=== PATIENT | female | born 1955 | race Caucasian/White ===

== ENCOUNTER 2022-11-23 05:38 | Inpatient (IN) ==
[~2022-11-23 05:38] MED LIST: Naloxone 0.4 mg VIAL 0.4 mg/ml 1 ml VIAL IV PRN; Prochlorperazine 5 mg/ml 2 ml VIAL (10 mg) IV PRN
[2022-11-23] MEDS ORDERED: Lactated Ringers 1000 ml BAG 1,000 ML IV SCH (06:00)
[2022-11-23] MEDS ORDERED: Famotidine IV 10 MG/ML 2 ml VIAL (20 mg) IV ONE (06:00)
[2022-11-23] MEDS ORDERED: Buffered Lidocaine 1% SYRIN 1 ml INTRADERM ONE (06:00)
[2022-11-23] MEDS ORDERED: BUPIVACAINE **LIPOSOME/PF 13.3 MG/ML (266MG/ 20ML) VIAL (RESTRICTED) INFIL ONE (06:00)
[2022-11-23] MEDS ORDERED: ceFAZolin 2 GM in NS PREMIX 2 GM/100 ML BAG IVPB ONE (06:08)
[2022-11-23] MEDS ORDERED: Tranexamic Acid 1 GM/100ML BAG 2,000 MG/200 ML BAG IV ONE (06:08)
[2022-11-23] MEDS ORDERED: Famotidine IV 10 MG/ML 2 ml VIAL (20 mg) ONE (06:09)
[2022-11-23 06:10] LABS: Rapid COVID-19 Molecular Undetected (Undetected)
[2022-11-23] MEDS ORDERED: Phenylephrine IV 10 MG/ML 1 ml VIAL ONE (07:10)
[2022-11-23] MEDS ORDERED: Propofol 0 MG/0 ML BTL ONE (07:10)
[2022-11-23] MEDS ORDERED: Propofol 10 MG/ML 20 ML BTL ONE ×2 (07:10→08:41)
[2022-11-23] MEDS ORDERED: Lidocaine 2% PF 5 ML VIAL ONE (07:10)
[2022-11-23] MEDS ORDERED: fentaNYL 100 mcg/2 ml 50 MCG/ML VIAL ONE ×2 (07:11→10:03)
[2022-11-23] MEDS ORDERED: Midazolam 2 mg/2 ml VIAL 1 mg/ml 2 ml VIAL (2 mg) ONE (07:11)
[2022-11-23] MEDS ORDERED: Bupivacaine 0.25% SDV 30 ML ONE ×2 (07:21→07:59)
[2022-11-23] MEDS ORDERED: Rocuronium 50 mg VIAL 10 mg/ml 5 ml VIAL (50 mg) ONE (08:35)
[2022-11-23] MEDS ORDERED: Succinylcholine 200 mg VIAL 20 mg/ml 10 ml VIAL (200 mg) ONE (08:41)
[2022-11-23] MEDS ORDERED: HYDROmorphone 0.5 MG/0.5 ML SYRINGE ONE ×2 (08:57)
[2022-11-23] MEDS ORDERED: Levalbuterol HFA INHALER MDI ONE (09:07)
[2022-11-23] MEDS ORDERED: Glycopyrrolate IV 0.2 MG/ML 1 ML VIAL ONE (09:14)
[2022-11-23] MEDS ORDERED: Sevoflurane BOTTLE ONE (10:44)
[2022-11-23] MEDS ORDERED: Magnesium Hydroxide LIQ 30 ML UDC PO PRN (11:32)
[2022-11-23] MEDS ORDERED: Ondansetron ODT 4 mg TAB 4 MG TAB PO PRN (11:32)
[2022-11-23] MEDS ORDERED: Ondansetron 4 mg VIAL 2 MG/ML 2 ml VIAL IV PRN (11:32)
[2022-11-23] MEDS ORDERED: Lactulose 30 ml UDC PO PRN (11:32)
[2022-11-23] MEDS ORDERED: fentaNYL 250 mcg/5 ml 50 MCG/ML 5 ml VIAL (250 MCG) ONE (11:42)
[2022-11-23] MEDS: fentaNYL 100 mcg/2 ml 50 MCG/ML VIAL IV PRN ×5 (11:44→13:06)
[2022-11-23] MEDS ORDERED: ceFAZolin 1 GM ADVAN 1 GM in NS 0.9% 50 ML 50 ML IVPB SCH (12:00)
[2022-11-23] MEDS ORDERED: Albuterol HFA INHALER 8 gm MDI INH PRN (12:26)
[2022-11-23] MEDS ORDERED: Albuterol/Ipratropium NEB.SOL (2.5/0.5 MG) 3 ML NEB.SOLN INH PRN (12:28)
[2022-11-23] MEDS ORDERED: Levalbuterol 1.25MG/0.5ML NEB.SOL ONE (12:38)
[2022-11-23] MEDS: Lactated Ringers 1000 ml BAG 1,000 ML IV SCH ×2 (14:44→23:25)
[2022-11-23] MEDS: ceFAZolin 1 GM ADVAN 1 GM in NS 0.9% 50 ML 50 ML IVPB SCH (16:47)
[2022-11-23] MEDS: Morphine 2 MG/ML SYRINGE IV PRN (17:46)
[2022-11-23] MEDS: Magnesium Hydroxide LIQ 30 ML UDC PO SCH (21:12)
[2022-11-24] MEDS: ceFAZolin 1 GM ADVAN 1 GM in NS 0.9% 50 ML 50 ML IVPB SCH ×2 (01:04→09:33)
[2022-11-24] MEDS: Morphine 2 MG/ML SYRINGE IV PRN (03:49)
[2022-11-24 07:06] LABS: Hematocrit 33.7 % (35-45); Hemoglobin 11.5 g/dL (11.5-14.3); Mean Platelet Volume 7.4 fL (7.5-11.2); Platelet Count 363 10^3/uL (150-450)
[2022-11-24 07:12] LABS: Calcium 8.7 mg/dL (8.6-10.3); Creatinine, Serum 0.7 mg/dL (0.51-0.95); Potassium 3.7 mmol/L (3.5-5.0); eGFR CKD-EPI 95.3 (>60)
[2022-11-24] MEDS: Mometasone/Formoter 200/5 MDI INH SCH ×3 (09:39→20:12)
[2022-11-24] MEDS: Magnesium Hydroxide LIQ 30 ML UDC PO SCH ×2 (09:41→21:44)
[2022-11-24] MEDS: Vitamin THERAPEUTIC TAB PO SCH (09:42)
[2022-11-25 06:23] LABS: Hematocrit 31.5 % (35-45); Hemoglobin 10.9 g/dL (11.5-14.3); Mean Platelet Volume 7.3 fL (7.5-11.2); Platelet Count 339 10^3/uL (150-450)
[2022-11-25 08:38] LABS: Calcium 8.9 mg/dL (8.6-10.3); Creatinine, Serum 0.63 mg/dL (0.51-0.95); Magnesium 1.8 mg/dL (1.9-2.7); Potassium 3.5 mmol/L (3.5-5.0); eGFR CKD-EPI 97.8 (>60)
[2022-11-25] MEDS ORDERED: Potassium Chlor 20 meq TAB.ER PO ONE (09:40)
[2022-11-25] MEDS ORDERED: Magnesium Sulfate 2 gm BAG 2 GM/50 ML BAG IVPB ONE (09:40)
[2022-11-25] MEDS: Vitamin THERAPEUTIC TAB PO SCH (09:49)
[2022-11-25] MEDS: Magnesium Hydroxide LIQ 30 ML UDC PO SCH ×2 (09:49→21:56)
[2022-11-25] MEDS: Mometasone/Formoter 200/5 MDI INH SCH ×2 (10:37→19:10)
[2022-11-25] MEDS ORDERED: Iohexol 350 (CONTRAST) 500 ML MDV IV ONE (11:26)
[2022-11-25] MEDS ORDERED: Iodixanol (CONTRAST) 320 MG/ML 100 ML SDV IV ONE (12:33)
[2022-11-25] MEDS ORDERED: cefTRIAXone 2 gm/50 mL D5W 2 GM/50 ML BAG IV SCH (15:00)
[2022-11-26 06:45] LABS: Hematocrit 27.6 % (35-45); Hemoglobin 9.7 g/dL (11.5-14.3); Mean Platelet Volume 7.5 fL (7.5-11.2); Platelet Count 324 10^3/uL (150-450)
[2022-11-26] MEDS: Vitamin THERAPEUTIC TAB PO SCH (08:23)
[2022-11-26] MEDS: Mometasone/Formoter 200/5 MDI INH SCH (08:44)
[2022-11-26 09:46] VITALS: BP 146/73
[2022-11-26] MEDS: Magnesium Hydroxide LIQ 30 ML UDC PO SCH (15:22)
== END 2022-11-26 13:30 | disposition home or self-care (01) | DRG 470 ==
LOC: SSU 05:38 → OR 05:38
PROVIDERS: ADMIT Orthopaedic Surgery Sports Medicine; ATTEND Orthopaedic Surgery Sports Medicine

== ENCOUNTER 2022-12-01 15:42 | Inpatient (IN) ==
[2022-12-01 17:10] LABS: Albumin 3.9 g/dL (3.2-5.2); Calcium 9.8 mg/dL (8.6-10.3); Hematocrit 34.6 % (35-45); Hemoglobin 11.6 g/dL (11.5-14.3); Mean Corpuscular Hemoglobin 30.9 pg (27-33); Mean Corpuscular Hgb Conc 33.5 g/dL (31-36); Mean Corpuscular Volume 92.1 fL (80-97); Mean Platelet Volume 6.8 fL (7.5-11.2); Platelet Count 805 10^3/uL (150-450); Potassium 4.3 mmol/L (3.5-5.0); Red Blood Count 3.75 10^6/uL (3.63-4.92); Red Cell Distribution Width 13.2 % (12-17); Total Bilirubin 0.9 mg/dL (0.2-1.0); White Blood Count 12.9 10^3/uL (3.8-11.8)
[2022-12-01 17:16] LABS: Albumin/Globulin Ratio 1.1 (1-3); C Reactive Protein 118.64 mg/L (<8.01); Creatinine, Serum 0.75 mg/dL (0.51-0.95); Globulin 3.7 g/dL (2-4); Total Protein 7.6 g/dL (6.4-8.9); eGFR CKD-EPI 87.8 (>60)
[2022-12-01] MEDS ORDERED: Morphine 4 MG/ML VIAL (1 ml) IV ONE (18:15)
[2022-12-01] MEDS ORDERED: cefTRIAXone 2 GM ADDV.VIAL 2 GM in NS 0.9% 100 ml BAG 100 ML IV ONE (18:49)
[2022-12-01] MEDS ORDERED: Vancomycin 1,500 MG in NS 0.9% 250 ml 250 ML IVPB ONE (19:00)
[2022-12-01] MEDS ORDERED: cefTRIAXone 2 gm/50 mL D5W 2 GM/50 ML BAG IV ONE (19:00)
[2022-12-01 19:06] LABS: RBC Morphology Normal (Normal)
[2022-12-01 19:07] LABS: ABS Basophils 0.2 10^3/uL (0.0-0.1); ABS Eosinophils 0.3 10^3/uL (0.0-0.5); ABS Lymphocytes 1.5 10^3/uL (1.0-4.8); ABS Monocytes 0.8 10^3/uL (0.0-0.9); ABS Neutrophils 10.1 10^3/uL (1.5-7.6); ABS Nucleated RBC 0.01 10^3/ul; Eosinophil % 2.1 %; Lymphocyte % 11.7 %; Nucleated Red Blood Cells % 0.1 /100 WBC (0.0-0.4)
[2022-12-01 19:57] LABS: Erythrocyte Sed Rate > 120 mm/Hr (0-29)
[2022-12-01] MEDS ORDERED: Ondansetron 4 mg VIAL 2 MG/ML 2 ml VIAL IV PRN (20:54)
[2022-12-01] MEDS ORDERED: Albuterol HFA INHALER 8 gm MDI INH PRN (22:16)
[2022-12-02 04:59] LABS: Hematocrit 29.9 % (35-45); Hemoglobin 10.2 g/dL (11.5-14.3); Mean Corpuscular Hemoglobin 31.7 pg (27-33); Mean Corpuscular Volume 93.1 fL (80-97); Mean Platelet Volume 6.5 fL (7.5-11.2); Platelet Count 728 10^3/uL (150-450); Red Blood Count 3.21 10^6/uL (3.63-4.92); Red Cell Distribution Width 13.3 % (12-17); White Blood Count 13.5 10^3/uL (3.8-11.8)
[2022-12-02] MEDS ORDERED: ceFAZolin 2 GM in NS PREMIX 2 GM/100 ML BAG IVPB SCH (05:00)
[2022-12-02 05:13] LABS: Creatinine, Serum 0.68 mg/dL (0.51-0.95); Potassium 3.9 mmol/L (3.5-5.0)
[2022-12-02] MEDS: ceFAZolin 2 GM PREMIX 2 GM/50 ML BAG IV SCH ×2 (05:43→12:49)
[2022-12-02 05:58] LABS: ABS Basophils 0.2 10^3/uL (0.0-0.1); ABS Eosinophils 0.3 10^3/uL (0.0-0.5); ABS Lymphocytes 2.1 10^3/uL (1.0-4.8); ABS Monocytes 1.1 10^3/uL (0.0-0.9); ABS Neutrophils 9.8 10^3/uL (1.5-7.6); Eosinophil % 2.2 %; Lymphocyte % 15.7 %
[2022-12-02] MEDS: Mometasone/Formoter 200/5 MDI INH SCH ×2 (07:14→18:59)
[2022-12-02] MEDS ORDERED: cefTRIAXone 2 gm/50 mL D5W 2 GM/50 ML BAG IV SCH (19:30)
[2022-12-02] MEDS ORDERED: Fluticasone NASAL SPRAY 50MCG 16 gm SPRAY BTL INTRANASAL SCH (21:00)
[2022-12-03 06:06] LABS: Hematocrit 28.7 % (35-45); Hemoglobin 10.2 g/dL (11.5-14.3); Mean Corpuscular Hemoglobin 32.6 pg (27-33); Mean Corpuscular Hgb Conc 35.5 g/dL (31-36); Mean Corpuscular Volume 91.9 fL (80-97); Mean Platelet Volume 6.6 fL (7.5-11.2); Platelet Count 725 10^3/uL (150-450); Red Blood Count 3.13 10^6/uL (3.63-4.92); Red Cell Distribution Width 13.3 % (12-17); White Blood Count 9.9 10^3/uL (3.8-11.8)
[2022-12-03 06:23] LABS: ABS Basophils 0.1 10^3/uL (0.0-0.1); ABS Eosinophils 0.2 10^3/uL (0.0-0.5); ABS Lymphocytes 1.3 10^3/uL (1.0-4.8); ABS Monocytes 0.9 10^3/uL (0.0-0.9); ABS Neutrophils 7.5 10^3/uL (1.5-7.6); Eosinophil % 2.4 %; Lymphocyte % 12.7 %
[2022-12-03 06:30] LABS: C Reactive Protein 77.71 mg/L (<8.01); Creatinine, Serum 0.69 mg/dL (0.51-0.95); Magnesium 2.1 mg/dL (1.9-2.7); Potassium 3.7 mmol/L (3.5-5.0); eGFR CKD-EPI 95.7 (>60)
[2022-12-03] MEDS: Mometasone/Formoter 200/5 MDI INH SCH (07:17)
[2022-12-03 14:53] VITALS: BP 120/83
== END 2022-12-03 16:20 | disposition home or self-care (01) | DRG 862 ==
LOC: ED 15:42 → EDHOLD 20:54 → SUATTDRO 20:54 → MED 12-02 19:03
PROVIDERS: ADMIT Student in an Organized Health Care Education/Training Program; ATTEND Internal Medicine